=== PATIENT | male | born 1980 | race American Indian/Alaskan Native ===

== ENCOUNTER 2018-02-27 14:27 | Emergency (ER) | payer SELFPAY ==
[2018-02-27 15:07] VITALS: BP 150/104
== END 2018-02-27 17:31 ==
LOC: ED 14:27
DX: L02.02 Furuncle of face (principal); Z53.21 Procedure and treatment not carried out due to patient leaving prior to being seen by health care provider

== ENCOUNTER 2018-08-03 14:16 | Emergency (ER) | payer SELFPAY ==
--- NOTE | 2018-08-03 14:22 | Emergency Department Report ---
Blank Doc - Documentation Documentation: This is a 38-year-old male that presents with dizziness and headache. Patient also stated has intermittent chest pain but denies any chest pain right now. Left sided headache with level of 8/10. Denies any injuries or trauma. This initial assessment diagnostic orders/clinical plan/treatment(s) is/are subject to change based on patient's health status, clinical progression and re- assessment by fellow clinical providers in the ED. Further treatment and workup at subsequent clinical providers discretion. Patient/guardians urged not to elope from ED s their condition may be serious if not clinically assessed and managed. Initial orders include: 1-Patient sent to [facility] for further evaluation and treatment 2- EKG
[2018-08-03 14:51] LABS: Hematocrit 43.5 % (35.5-45.6); Mean Corpuscular HGB Conc 35 % (32-34); Mean Corpuscular Volume 93 fl (84-94); Platelet Count 122 K/mm3 (140-440); Red Blood Count 4.66 M/mm3 (3.65-5.03); Red Cell Distribution Width 13.7 % (13.2-15.2)
[2018-08-03 15:09] LABS: Lymphocytes % (Auto) 23.6 % (13.4-35.0)
[2018-08-03 15:10] LABS: Basophils # (Auto) 0.1 K/mm3 (0.0-0.1); Basophils % (Auto) 1.4 % (0.0-1.8); Eosinophils % (Auto) 0.4 % (0.0-4.3); Lymphocytes # (Auto) 1.1 K/mm3 (1.2-5.4); Monocytes # (Auto) 0.3 K/mm3 (0.0-0.8); Monocytes % (Auto) 6.7 % (0.0-7.3)
[2018-08-03 15:11] LABS: BUN/Creatinine Ratio 13; Blood Urea Nitrogen 12 mg/dL (9-20); Calcium 9.7 mg/dL (8.4-10.2); Hemolysis Index 8
--- NOTE | 2018-08-03 18:34 | Emergency Department Report ---
ED Dizziness HPI - General Chief Complaint: Dizziness Stated Complaint: HEADACHE/DIZZY/CHEST PAIN Time Seen by Provider: 08/03/18 14:20 Source: patient, family Mode of arrival: Ambulatory Limitations: No Limitations - History of Present Illness Initial Comments: This is a 38-year-old male presents to the emergency room complaining of headache, dizziness and intermittent chest pain that got worse with inspiration over 2 days he said he is not having any chest pain at present but when he had chest pain it was 3 out of 10 located to mid chest without any shortness of breath. Denies any cough. Headache is 8 out of 10 and feels like pressure to his forehead. Reports some nasal congestion and runny nose denies any earache or sore throat. Denies any respiratory distress. Patient does not have any medical problems and his blood pressure is 145/99 emergency room without any history of high blood pressure. Headache comes and goes and [id number] medication taken without any relief. MD Complaint: dizziness, other (headache and intermittent chest pain but he does not have any chest pain right now.) Onset/Timin -: days(s) Timing: sudden onset Description: sense of movement, "room spinning", lightheadedness History of Same: No History of Trauma: No Severity: moderate Improves With: nothing Worsens With: movement, position Associated Symptoms: chest pain (chest pain that has resolved none since yesterday), other (nasal congestion). denies: ataxia, confusion, cough, diaphoresis, fever/chills, loss of appetite, malaise, rash, seizure, shortness of breath, syncope, weakness - Related Data Previous Rx's Medication Instructions Recorded Last Taken Type Amoxicillin [Trimox CAP] 1,000 mg PO BID #40 capsule 04/26/13 Unknown Rx Butalb/Acetamin/Caff 50-325-40 1 each PO Q4H PRN #20 tablet 04/26/13 Unknown Rx [Fioricet] Prednisone 20 mg PO QDAY #5 tablet 04/26/13 Unknown Rx Acetaminophen/Codeine [Tylenol 1 tab PO Q6H PRN #14 tab 08/03/18 Unknown Rx /Codeine # 3 tab] Cetirizine HCl [ZyrTEC] 10 mg PO QAM 14 Days #14 capsule 08/03/18 Unknown Rx Fluticasone [Flonase] 1 spray NS QDAY 14 Days #1 bottle 08/03/18 Unknown Rx Meclizine HCl [Motion Sickness 25 mg PO Q8H PRN #12 tablet 08/03/18 Unknown Rx Relief] Allergies Allergy/AdvReac Type Severity Reaction Status Date / Time No Known Allergies Allergy Verified 02/27/18 15:02 ED Review of Systems ROS: Stated complaint: HEADACHE/DIZZY/CHEST PAIN Other details as noted in HPI Constitutional: denies: chills, fever ENT: congestion. denies: ear pain, throat pain, dental pain, hearing loss Respiratory: denies: cough, shortness of breath, SOB with exertion, SOB at rest, stridor, wheezing Cardiovascular: denies: chest pain, palpitations, edema, syncope Gastrointestinal: denies: abdominal pain, nausea, vomiting Genitourinary: denies: dysuria, hematuria Musculoskeletal: denies: back pain, joint swelling, arthralgia, myalgia Skin: denies: rash Neurological: headache, vertigo. denies: weakness, numbness, paresthesias, confusion, abnormal gait ED Past Medical Hx - Past Medical History Previous Medical History?: No - Surgical History Past Surgical History?: No - Family History Family history: hypertension - Social History Smoking Status: Never Smoker Substance Use Type: Alcohol - Medications Home Medications: Home Medications Medication Instructions Recorded Confirmed Last Taken Type Amoxicillin [Trimox CAP] 1,000 mg PO BID #40 capsule 04/26/13 Unknown Rx Butalb/Acetamin/Caff 50-325-40 1 each PO Q4H PRN #20 tablet 04/26/13 Unknown Rx [Fioricet] Prednisone 20 mg PO QDAY #5 tablet 04/26/13 Unknown Rx Acetaminophen/Codeine [Tylenol 1 tab PO Q6H PRN #14 tab 08/03/18 Unknown Rx /Codeine # 3 tab] Cetirizine HCl [ZyrTEC] 10 mg PO QAM 14 Days #14 capsule 08/03/18 Unknown Rx Fluticasone [Flonase] 1 spray NS QDAY 14 Days #1 bottle 08/03/18 Unknown Rx Meclizine HCl [Motion Sickness 25 mg PO Q8H PRN #12 tablet 08/03/18 Unknown Rx Relief] ED Physical Exam - General Limitations: No Limitations General appearance: alert, in no apparent distress - Head Head exam: Present: atraumatic, normocephalic, normal inspection, other (normal exam) - Eye Eye exam: Present: normal appearance, PERRL, EOMI. Absent: nystagmus Pupils: Present: normal accommodation - ENT ENT exam: Present: normal orophraynx, mucous membranes moist, normal external ear exam, other (bilateral nasal mucosa erythema congested with clear drainage). Absent: TM's normal bilaterally (bilateral TM congested without erythema) - Neck Neck exam: Present: normal inspection, full ROM, other (no C-spine tenderness). Absent: tenderness, lymphadenopathy - Respiratory Respiratory exam: Present: normal lung sounds bilaterally, other (denies denies any pain with inspiration of present). Absent: respiratory distress, wheezes, rales, rhonchi, stridor, chest wall tenderness, accessory muscle use, decreased breath sounds, prolonged expiratory - Cardiovascular Cardiovascular Exam: Present: regular rate, normal rhythm, normal heart sounds - GI/Abdominal GI/Abdominal exam: Present: soft, normal bowel sounds. Absent: distended, tenderness, guarding, rebound, rigid, organomegaly, mass (will be on it if he screamed but nobody probably signed up for it yet) - Extremities Exam Extremities exam: Present: normal inspection, full ROM, normal capillary refill, other (No cce. + 2 pulses in all extremities, no neurovascular compromise). Absent: tenderness, pedal edema, joint swelling, calf tenderness - Back Exam Back exam: Present: normal inspection, full ROM, other (ambulates without any d ifficulties). Absent: tenderness, CVA tenderness (R), CVA tenderness (L), muscle spasm, paraspinal tenderness, vertebral tenderness, rash noted - Neurological Exam Neurological exam: Present: alert, oriented X3, normal gait, reflexes normal. Absent: motor sensory deficit - Expanded Neurological Exam Expanded Neurological exam: Absent: innattentive, memory loss-remote event, memory loss- recent event, ataxia, receptive aphasia, expressive aphasia, total aphasia, tremor, protecting the airway Patient oriented to: Present: person, place, time Speech: Present: fluid speech Cranial nerves: EOM's Intact: Normal, Gag Reflex: Normal, Tongue Deviation: Normal, Nystagmus: Normal, Facial Sensation: Normal Cerebellar function: Romberg: Normal Upper motor neuron: Pronator Drift: Normal, Sensory Extinction: Normal Sensory exam: Upper Extremity Light Touch: Normal, Upper Extremity Temperature: Normal, Lower Extremity Light Touch: Normal, Lower Extremity Temperature: Normal Motor strength exam: RUE: 5, LUE: 5, RLE: 5, LLE: 5 Best Eye Response ([place]): (4) open spontaneously Best Motor Response ([place]): (6) obeys commands Best Verbal Response ([place]): (5) oriented Hui Total: 15 - Psychiatric Psychiatric exam: Present: normal affect, normal mood - Skin Skin exam: Present: warm, dry, intact, normal color. Absent: rash ED Course Vital Signs 08/03/18 08/03/18 14:29 17:28 Temperature 98 F Pulse Rate 99 H Respiratory 18 18 Rate Blood Pressure 145/99 O2 Sat by Pulse 100 99 Oximetry - Reevaluation(s) Reevaluation #1: 08/03/18 21:11 Patient stable throughout ED course. ED Medical Decision Making - Lab Data Result diagrams: 08/03/18 14:29 08/03/18 14:29 Lab Results 08/03/18 08/03/18 08/03/18 Range/Units 14:29 14:29 18:49 WBC 4.8 (4.5-11.0) K/mm3 RBC 4.66 (3.65-5.03) M/mm3 Hgb 15.0 (11.8-15.2) gm/dl Hct 43.5 (35.5-45.6) % MCV 93 (84-94) fl MCH 32 (28-32) pg MCHC 35 H (32-34) % RDW 13.7 (13.2-15.2) % Plt Count 122 L (140-440) K/mm3 Lymph % (Auto) 23.6 (13.4-35.0) % [place] % (Auto) 6.7 (0.0-7.3) % Eos % (Auto) 0.4 (0.0-4.3) % Baso % (Auto) 1.4 (0.0-1.8) % Lymph # 1.1 L (1.2-5.4) K/mm3 [place] # 0.3 (0.0-0.8) K/mm3 Eos # 0.0 (0.0-0.4) K/mm3 Baso # 0.1 (0.0-0.1) K/mm3 Total Counted Cancelled Seg Neutrophils % 67.9 (40.0-70.0) % Seg Neuts % (Manual) Cancelled Band Neutrophils % Cancelled Lymphocytes % (Manual) Cancelled Reactive Lymphs % (Man) Cancelled Monocytes % (Manual) Cancelled Eosinophils % (Manual) Cancelled Basophils % (Manual) Cancelled Metamyelocytes % Cancelled Myelocytes % Cancelled Promyelocytes % Cancelled Blast Cells % Cancelled Nucleated RBC % Cancelled Seg Neutrophils # 3.2 (1.8-7.7) K/mm3 Seg Neutrophils # Man Cancelled Band Neutrophils # Cancelled Lymphocytes # (Manual) Cancelled Abs React Lymphs (Man) Cancelled Monocytes # (Manual) Cancelled Eosinophils # (Manual) Cancelled Basophils # (Manual) Cancelled Metamyelocytes # Cancelled Myelocytes # Cancelled Promyelocytes # Cancelled Blast Cells # Cancelled WBC Morphology Cancelled Hypersegmented Neuts Cancelled Hyposegmented Neuts Cancelled Hypogranular Neuts Cancelled Hypersegmented Polys Cancelled Smudge Cells Cancelled Toxic Granulation Cancelled Toxic Vacuolation Cancelled Dohle Bodies Cancelled Pelger-Huet Anomaly Cancelled [place] Rods Cancelled Platelet Estimate Cancelled Clumped Platelets Cancelled Plt Clumps, EDTA Cancelled Large Platelets Cancelled Giant Platelets Cancelled Platelet Satelliting Cancelled Plt Morphology Comment Cancelled RBC Morphology Cancelled Dimorphic RBCs Cancelled Polychromasia Cancelled Hypochromasia Cancelled Poikilocytosis Cancelled Basophilic Stippling Cancelled Anisocytosis Cancelled Microcytosis Cancelled Macrocytosis Cancelled Spherocytes Cancelled Pappenheimer Bodies Cancelled Sickle Cells Cancelled Target Cells Cancelled Tear Drop Cells Cancelled Ovalocytes Cancelled Stomatocytes Cancelled Helmet Cells Cancelled Alves-[place]an Bodies Cancelled [place] Rings Cancelled [place] Cells Cancelled Bite Cells Cancelled Crenated Cell Cancelled Elliptocytes Cancelled Acanthocytes (Spur) Cancelled Rouleaux Cancelled Hemoglobin C Crystals Cancelled Schistocytes Cancelled Malaria parasites Cancelled Michael Bodies Cancelled Hem Pathologist Commnt Cancelled Sodium 145 (137-145) mmol/L Potassium 4.5 (3.6-5.0) mmol/L Chloride 103.8 (98-107) mmol/L Carbon Dioxide 31 H (22-30) mmol/L Anion Gap 15 mmol/L BUN 12 (9-20) mg/dL Creatinine 0.9 (0.8-1.5) mg/dL Estimated GFR > 60 ml/min BUN/Creatinine Ratio 13 % Glucose 91 (75-100) mg/dL Calcium 9.7 (8.4-10.2) mg/dL Troponin T < 0.010 (0.00-0.029) ng/mL - EKG Data -: EKG Interpreted by Me (attending physician) EKG shows normal: sinus rhythm (91 bpm) Rate: normal - EKG Data Interpretation: no acute changes, LVH - Radiology Data Radiology results: report reviewed Chest x-ray dictated by radiologist's report reviewed by myself. No acute findings. I am unable to populate results to the section due to malfunction of the radiology system. - Medical Decision Making This is a 38-year-old male presents to emergency room with dizziness and he had chest pain yesterday but none today. He reports he has a headache that feels like pressure. Physical findings for nasal mucosa congested with erythema and clear drainage and bilateral TM congested without erythema. Lungs sounds are clear and he denies any pain with inspiration. AVTAR score is 0 and hard score is low. Perc place at low risk for PE. Patient had chest x-ray done which shows no acute findings that necessitated by radiologist and reported to myself. Please see report section for details. CBC and BMP stable troponin is negative. EKG stable - Differential Diagnosis PNA, bronchitis, pleurisy, atypical chest pain, upper respiratory Critical care attestation.: If time is entered above; I have spent that time in minutes in the direct care of this critically ill patient, excluding procedure time. ED Disposition Clinical Impression: Atypical chest pain, Elevated BP without diagnosis of hypertension Upper respiratory infection Qualifiers: URI type: unspecified viral URI Qualified Code(s): J06.9 - Acute upper respiratory infection, unspecified Vestibular disequilibrium Qualifiers: Laterality: bilateral Qualified Code(s): H83.2X3 - Labyrinthine dysfunction, bilateral Disposition: DC-01 TO HOME OR SELFCARE Is pt being admited?: No Does the pt Need Aspirin: No Condition: Stable Instructions: Chest Pain (ED), Upper Respiratory Infection (ED), Dizziness (ED), Lightheadedness (ED), DASH Eating Plan (ED), Hypertension (ED) Additional Instructions: Please follow up with primary care physician in 2-3 days Pain medication as prescribed Increase your fluid intake If he is symptoms worsen, return to the emergency room Your blood pressure was elevated today and because he mentioned that he had chest pain yesterday, I would like him to follow up with a data analyst etl developer for further workup to rule out any heart problems. Take Antivert for dizziness Keep a record a few blood pressure daily and takes a primary care visit with you. Take Tylenol 3 for headache but please do not drive or operate heavy machinery while taking this medicine as it causes drowsiness Referrals: ABILIO CALDERADOE HILL MD SHARRI [Primary Care Provider] - 2-3 Days () SADAF MCCARTNEY MD [Staff Physician] - 2-3 Days Forms: Work/School Release Form(ED)
--- NOTE | 2018-08-03 20:43 | XRay Report ---
FINAL REPORT PROCEDURE: XR CHEST ROUTINE 2V TECHNIQUE: PA and lateral chest radiographs were obtained. CPT 54829 HISTORY: cp/ COMPARISON: No prior studies are available for comparison. FINDINGS: Heart: Normal. Mediastinum/Vessels: Normal. Lungs/Pleural space: Normal. Bony thorax: Mild degree dextroscoliosis of the lower thoracic spine for is noted. Other: IMPRESSION: Normal examination.
[2018-08-03 21:41] VITALS: BP 152/96
== END 2018-08-03 21:39 | disposition home or self-care (01) ==
LOC: ED 14:16
DX: J06.9 Acute upper respiratory infection, unspecified (principal); H83.2X9 Labyrinthine dysfunction, unspecified ear; R07.89 Other chest pain
CPT/HCPCS: 36415; 71046; 80048; 84484; 85025; 93005; 93010